=== PATIENT | female | born 1960 | race Caucasian/White ===

== ENCOUNTER 2023-07-04 16:05 | Emergency (ER) | payer OTHER ==
[2023-07-04 16:11] VITALS: BP 145/78; PULSE 80; RESP 18; TEMP 98.1; BMI 22.9
[2023-07-04] MEDS ORDERED: ACETAMINOPHEN INJECTION 100 ML IVPB ONE (18:10)
[2023-07-04] MEDS: ACETAMINOPHEN 1000 MG/100 ML BAG IVPB ONE (18:25)
[2023-07-04] MEDS: SODIUM CHLORIDE 1,000 ML IV STA (18:25)
[2023-07-04 18:47] LABS: BASO % 0.4 % (0-2.0); EOS % 0.9 % (0-4.5); HEMATOCRIT 41.2 % (32.4-45.2); HEMOGLOBIN 13.4 GM/dL (10.7-15.3); LYMPH % 22.5 % (8-40); MCH 29.7 pg (25.7-33.7); MCHC 32.5 g/dl (32.0-36.0); MEAN CELL VOLUME 91.3 fl (80-96); MEAN PLT VOLUME 9.2 fl (7.5-11.1); MONO % 8.9 % (3.8-10.2); NEUT % 67.3 % (42.8-82.8); PLATELET COUNT 244 10^3/uL (134-434); RBC 4.51 M/mm3 (3.60-5.2); WHITE BLOOD COUNT 7.2 K/mm3 (4.0-10.0)
[2023-07-04 19:10] LABS: POTASSIUM 4.1 mmol/L (3.5-5.1)
[2023-07-04 19:14] LABS: ALBUMIN 3.3 g/dl (3.4-5.0); BLOOD UREA NITROGEN 12.2 mg/dL (7-18)
[2023-07-04 19:17] LABS: CREATININE 0.7 mg/dL (0.55-1.3)
[2023-07-04 19:18] LABS: TOT PROT 6.8 g/dl (6.4-8.2)
[2023-07-04 19:19] LABS: BILIRUBIN,TOTAL 0.3 mg/dL (0.2-1)
[2023-07-04] MEDS ORDERED: KETOROLAC TROMETHAMINE 15 MG/ML VIAL ONE (22:11)
[2023-07-04] MEDS: KETOROLAC TROMETHAMINE 30 MG/1 ML VIAL IVPUSH ONE (22:13)
== END 2023-07-04 22:14 | disposition home or self-care (01) ==
LOC: JERFT 16:05
PROC: 3E033NZ Introduction of Analgesics, Hypnotics, Sedatives into Peripheral Vein, Percutaneous Approach (ICD-10-PCS; principal; 2023-07-04)
PROC: 3E0333Z Introduction of Anti-inflammatory into Peripheral Vein, Percutaneous Approach (ICD-10-PCS; 2023-07-04)
PROC: 3E0337Z Introduction of Electrolytic and Water Balance Substance into Peripheral Vein, Percutaneous Approach (ICD-10-PCS; 2023-07-04)
DX: M79.622 Pain in left upper arm (principal); X50.0XXA Overexertion from strenuous movement or load, initial encounter; Y93.89 Activity, other specified
CPT/HCPCS: 36415; 73030-TC-LT-FY; 73060-TC-LT-FY; 80053; 84484; 85025; 93005; 93010; 93971; 99285-25; J0131

== ENCOUNTER 2023-12-23 12:33 | Emergency (ER) | payer OTHER ==
[2023-12-23 12:44] VITALS: BP 137/89; PULSE 90; RESP 17; TEMP 97.7; BMI 21.6
== END 2023-12-23 14:42 | disposition home or self-care (01) ==
LOC: JER 12:33
DX: R51.9 Headache, unspecified (principal); R03.0 Elevated blood-pressure reading, without diagnosis of hypertension
CPT/HCPCS: 99283-25